=== PATIENT | female | born 1955 | race Caucasian/White ===

== ENCOUNTER 2018-10-08 12:09 | Inpatient (IN) | payer OTHER ==
[~2018-10-08] VITALS: Ht 157.5 cm; Wt 103.9 kg
--- OUTSIDE RECORDS SUMMARY | 2018-10-08 12:11 | XMS REPORT ---
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 Allergies, Adverse Reactions, Alerts Allergy Name Allergy Type Status Severity Reaction(s) Onset Date Inactive Date Treating Clinician Comments aspirin DA Active U 2015-02-23 00:00:00 penicillin G DA Active U 2015-02-23 00:00:00 SULFA DRUGS DA Active U 2015-02-23 00:00:00 TAPE DA Active U 2005-12-02 00:00:00 Medications This patient has no known medications.
[2018-10-08] MEDS ORDERED: SODIUM CHLORIDE 0.9% 1000ML 1,000 ML IV STA (12:16)
[2018-10-08] MEDS ORDERED: ACETAMINOPHEN 1000 MG/100 ML IV NR (12:16)
[2018-10-08] MEDS ORDERED: METHYLPREDNISOLONE SOD SUCC 125 MG/2ML VIAL IV ONE (12:30)
[2018-10-08] MEDS ORDERED: ALBUTEROL/IPRATROPIUM 3 ML NEB NEB ONE (12:30)
[2018-10-08 13:02] LABS: ABG HCO3 30 mmol/L (23-28); ABG PCO2 48 mmHg (41-51); ABG PO2 83 mmHg (80-105)
[2018-10-08 13:04] LABS: BASOPHILS # (AUTO) 0.1 (0.0-0.1); BASOPHILS % 0.6 % (0.0-1.0); EOSINOPHILS # (AUTO) 0.3 (0.0-0.4); EOSINOPHILS % 2.2 % (0.0-6.0); HEMATOCRIT 39.3 % (34.2-44.1); HEMOGLOBIN 12.8 g/dL (12.0-16.0); LYMPHOCYTES % 16.7 % (18.0-39.1); MEAN CORPUSCULAR HEMOGLOBIN 31.1 pg (28-32); MEAN CORPUSCULAR HGB CONC 32.6 g/dL (31-35); MEAN CORPUSCULAR VOLUME 95.4 fL (81-99); MONOCYTES # (AUTO) 0.7 (0.2-0.8); NEUTROPHILS % 73.8 % (38.7-80.0); PLATELET COUNT 282 x10e3/uL (140-360); RED BLOOD COUNT 4.12 x10e6/uL (3.6-5.1)
[2018-10-08 13:14] LABS: BILIRUBIN,URINE NEGATIVE (NEGATIVE); CLARITY,URINE SL CLOUDY (CLEAR); COLOR,URINE YELLOW (YELLOW); KETONES,URINE NEGATIVE (NEGATIVE); LEUKOCYTE ESTERASE ,URINE NEGATIVE (NEGATIVE); NITRITE,URINE NEGATIVE (NEGATIVE); PROTEIN,URINE DIPSTICK TRACE (NEGATIVE); URINE UROBILINOGEN 1 mg/dL (0.2 - 1)
[2018-10-08 13:15] LABS: BACTERIA,URINE RARE /HPF; EPITHELIAL CELLS,URINE FEW /LPF; RBC,URINE 0-5 /HPF (0-5)
--- NOTE | 2018-10-08 13:18 | Diagnostic Imaging Report ---
EXAM: CHEST SINGLE (PORTABLE), AP Portable DATE: 10/08/2018 Time stamp on exam: 12:54 PM INDICATION: Shortness of breath COMPARISON: None FINDINGS: LINES/TUBES: None LUNGS: Mild pulmonary vascular congestion/edema. Opacity in the right upper lobe adjacent to the minor fissure may represent focal consolidation in addition. PLEURA: No effusions or pneumothorax. HEART AND MEDIASTINUM: Heart is enlarged. BONES AND SOFT TISSUES: No acute findings. IMPRESSION: 1. Cardiomegaly with mild pulmonary vascular congestion/edema. 2. Right upper lobe focal consolidation. Signed by: Dr. Shen Anders DO on 10/08/2018 1:14 PM
[2018-10-08 13:26] LABS: ALANINE AMINOTRANSFERASE 24 IU/L (0-55); ALBUMIN 3.1 g/dL (3.5-5.0); ALBUMIN/GLOBULIN RATIO 0.7 (0.8-2.0); ALKALINE PHOSPHATASE 114 IU/L (40-150); ANION GAP 13.8 mmol/L (8-16); BLOOD UREA NITROGEN 5 mg/dL (7-26); BUN/CREATININE RATIO 7 (6-25); CALCIUM 9.4 mg/dL (8.4-10.2); CARBON DIOXIDE 29 mmol/L (22-29); CHLORIDE 100 mmol/L (98-107); CREATINE KINASE 69 IU/L (29-168); EST GLOMERULAR FILTRATION RATE > 60 ML/MIN (60-); GLUCOSE 111 mg/dL (74-118); LIPASE 12 U/L (8-78); POTASSIUM 3.8 mmol/L (3.5-5.1); SODIUM 139 mmol/L (136-145)
[2018-10-08 13:30] LABS: STREPTOCOCCUS GRP A ANTIGEN NEGATIVE (NEGATIVE)
[2018-10-08 13:42] LABS: INFLUENZAE A&B ANTIGEN (RAPID) POSITIVE FLU B (NEGATIVE)
[2018-10-08] MEDS ORDERED: VANCOMYCIN HCL 1GM/NS 250 ML BAG IV SCH (13:45)
[2018-10-08] MEDS ORDERED: CEFTRIAXONE SOD 1 GRAM/0.9% SOD CHL 50ML BAG IV SCH (13:45)
[2018-10-08] MEDS ORDERED: AZITHROMYCIN 500MG/SOD CHL 0.9% 250ML BAG IV SCH (13:45)
[2018-10-08] MEDS ORDERED: CEFTRIAXONE SOD 1 GM/NS 50 ML 50 ML IV SCH ×2 (14:00→15:30)
[2018-10-08] MEDS ORDERED: VANCOMYCIN 1GM/NS 250 ML 250 ML IV SCH (14:00)
[2018-10-08] MEDS ORDERED: AZITHROMYCIN 500MG/NS 250 ML 250 ML IV SCH (14:00)
[2018-10-08 15:00] VITALS: BP 144/66
[2018-10-08] MEDS ORDERED: PROAIR HFA INH8.5 GM IH (15:11)
[2018-10-08 15:12] VITALS: BP 144/66
[2018-10-08 15:13] VITALS: BP 144/66
--- NOTE | 2018-10-08 15:25 | NUR ---
PATIENT ARRIVED ON THE UNIT AT 1418 PER STRETCHER FROM THE ER. PATIENT IS IN STABLE CONDITION WITH NO S/S OF RESPIRATORY DISTRESS. NO PAIN VOICED. O2 APPLIED AT 2LNC. TELEMETRY APPLIED. IV ANTIBIOTICS INFUSING. PRESENT IN ROOM. CALL LIGHT IS WITHIN REACH, PATIENT INSTRUCTED TO CALL FOR ASSISTANCE NEEDED.
[2018-10-08] MEDS ORDERED: ACETAMINOPHEN 325 MG TAB PO PRN (15:45)
[2018-10-08] MEDS ORDERED: ONDANSETRON HCL INJ 2MG/ML 2ML 2 MG/ML VIAL IV PRN (15:45)
[2018-10-08] MEDS: OSELTAMIVIR PHOSPHATE 75 MG CAP PO SCH (16:19)
[2018-10-08] MEDS: CEFTRIAXONE SOD 1 GM/NS 50 ML 50 ML IV SCH (16:19)
[2018-10-08] MEDS: VANCOMYCIN 1GM/NS 250 ML 250 ML IV SCH (16:57)
--- NOTE | 2018-10-08 19:05 | NUR ---
PATIENT IS IN STABLE CONDITION WITH NO S/S OF RESPIRATORY DISTRESS. NO PAIN VOICED. TELEMETRY APPLIED WITH CONTINUOS PULSE OX. IV ANTIBIOTIC INFUSING. PRESENT IN ROOM. CALL LIGHT IS WITHIN REACH, PATIENT INSTRUCTED TO CALL FOR ASSISTANCE NEEDED. BEDSIDE REPORT GIVEN TO ONCOMING NURSE.
[2018-10-08] MEDS: ALBUTEROL/IPRATROPIUM 3 ML NEB NEB SCH (19:10)
[2018-10-08 19:11] VITALS: BP 144/65
--- NOTE | 2018-10-08 19:11 | NUR ---
PT IS RESTING IN BED WITH FAMILY AT BEDSIDE. NO RESPIRATORY DISTRESS NOTED. BED IN THE LOWEST POSITION, LOCKED, AND CALL LIGHT WITHIN REACH. WILL CONTINUE TO MONITOR.
[2018-10-08 19:53] VITALS: BP 144/65
[2018-10-08 21:19] LABS: CREATINE KINASE 79 IU/L (29-168)
--- NOTE | 2018-10-08 22:47 | Consultation ---
DATE OF CONSULTATION: 10/08/2018 Pulmonary Consultation REASON FOR CONSULTATION: Shortness of breath, wheezing, and coughing. HISTORY OF PRESENT ILLNESS: Ms. Gilman is a 63-year-old female. She presented to the emergency room with cough, fever, and shortness of breath. The patient reports the symptoms have been going on for a week, progressively getting worse. She has been a smoker for 40+ years. She quit a week ago. She smokes a pack a day. She has been on ProAir inhaler at home. She denies any nausea, vomiting, or diarrhea. In the emergency room, the patient underwent testing and was positive for influenza B. Influenza B chest x-ray showing evidence of pneumonia as well. She is denying any pneumonia as well. REVIEW OF SYSTEMS: GENERAL: Having fever and chills. HEAD: Denies any head trauma. ENT: Denies any earache. CVS: Denies any chest pain. RESPIRATORY: Shortness of breath. The rest of the review of systems are negative except as in HPI. PAST MEDICAL HISTORY: Hypertension and obesity. PAST SURGICAL HISTORY: None known. FAMILY AND SOCIAL HISTORY: She does not smoke. She has been a smoker for 40 years, one pack per day. She denies any alcohol use. PHYSICAL EXAMINATION: VITAL SIGNS: Temperature 99.1, pulse of 82, blood pressure 144/62, respiratory rate of 18, and O2 saturation 93% on 2 L. HEENT: Head is atraumatic and normocephalic. NECK: Supple. CHEST: Reduced air entry. Occasional wheezing. HEART: S1, S2 audible. ABDOMEN: Soft, nontender, and nondistended. EXTREMITIES: No clubbing, cyanosis, or edema. NEUROLOGIC: Awake and alert. LABORATORY DATA: White count of 12,000, hemoglobin 12.8, and platelets 282. Chemistries within normal limits. Chest x-ray, I have reviewed the images, it is showing evidence of right upper lobe consolidation and also pulmonary vascular congestion, edema. ASSESSMENT: Ms. Gilman is a 63-year-old female presented with shortness of breath, cough, and chills. 1. Influenza. 2. Early community-acquired pneumonia. 3. Smoker. 4. Possibility of chronic obstructive pulmonary disease exacerbation. 5. Obesity. PLAN: 1. IV Solu-Medrol. 2. Nebulizer treatment. 3. Tamiflu and IV antibiotics. Thank you for this consult. MD ARABELLA Alvarez/MERCEDES /[id number]
[2018-10-08] MEDS ORDERED: ZETIA10 MG PO (23:16)
[2018-10-08] MEDS ORDERED: NORCO 10-325 T1 EACH (23:16)
[2018-10-08] MEDS ORDERED: VENLAFAXINE HCL75 M1 PO (23:16)
[2018-10-08] MEDS ORDERED: SIMVASTATIN40 MG PO (23:16)
[2018-10-08] MEDS ORDERED: TRAZODONE HCL50 MG PO (23:16)
[2018-10-08] MEDS ORDERED: GABAPENTIN100 MG (23:16)
[2018-10-09] VITALS (10 sets, daily range): BP systolic 112–144; BP diastolic 56–65
[2018-10-09 05:18] LABS: BASOPHILS % 0.3 % (0.0-1.0); HEMATOCRIT 40.4 % (34.2-44.1); HEMOGLOBIN 12.7 g/dL (12.0-16.0); LYMPHOCYTES # (AUTO) 1.3 (1.0-3.2); LYMPHOCYTES % 11.5 % (18.0-39.1); MEAN CORPUSCULAR HGB CONC 31.4 g/dL (31-35); MEAN CORPUSCULAR VOLUME 98.5 fL (81-99); MONOCYTES # (AUTO) 0.4 (0.2-0.8); MONOCYTES % 3.1 % (4.4-11.3); NEUTROPHILS # (AUTO) 9.8 (2.1-6.9); NEUTROPHILS % 84.2 % (38.7-80.0); PLATELET COUNT 300 x10e3/uL (140-360)
[2018-10-09 06:12] LABS: CREATINE KINASE 91 IU/L (29-168)
--- NOTE | 2018-10-09 07:00 | NUR ---
PATIENT IS IN STABLE CONDITION WITH NO S/S OF RESPIRATORY DISTRESS. PATIENT DENIES PAIN. 02 APPLIED. TELEMETRY APPLIED WITH CONTINUOUS PULSE OX. CALL LIGHT IS WITHIN REACH, PATIENT INSTRUCTED TO CALL FOR ASSISTANCE NEEDED.
[2018-10-09] MEDS: ALBUTEROL/IPRATROPIUM 3 ML NEB NEB SCH ×4 (07:40→19:35)
[2018-10-09] MEDS: OSELTAMIVIR PHOSPHATE 75 MG CAP PO SCH (08:32)
[2018-10-09] MEDS ORDERED: FAMOTIDINE20 MG PO (08:48)
[2018-10-09] MEDS ORDERED: ALBUTEROL SULFATE HFA 8GM INHALATION AEROSOL INH PRN (13:15)
--- NOTE | 2018-10-09 13:17 | NUR ---
ASKED DR. VELAZQUEZ ON RENEWING HOME MEDICATIONS- ORDER TO RENEW ALL HOME MEDICATIONS EXCLUDING NORCO.
--- NOTE | 2018-10-09 13:33 | History and Physical ---
CHIEF COMPLAINT: Cough, chest congestion. HISTORY OF PRESENT ILLNESS: This is a 63-year-old white woman, who presents to [facility] Emergency Room with a 2 to 3 day history of worsening cough and chest congestion. The patient states that her sputum has been purulent in nature. Denies any hemoptysis. The patient also states her sputum has not been davidson or black. The patient states that past 5 days prior to admission, she was experiencing copious amount of sinus drainage. The patient also states she quit smoking tobacco on October 03, 2018, after her 2nd round of oral Chantix. The patient states she was experiencing fever for at least 2 to 3 days prior to admission. In the emergency room, the patient was found to have white blood cell count of 12,100 with 73% segmented neutrophils. The patient had a chest x-ray done in the emergency room, which revealed cardiomegaly with mild pulmonary vascular congestion as well as right upper lobe focal consolidation. The patient was admitted for further evaluation and treatment. The patient also underwent serial cardiac enzymes in the emergency room that did not reveal any evidence of acute myocardial ischemia or infarction. In fact, the patient states in 2016, she underwent nuclear stress test, which was completely normal. REVIEW OF SYSTEMS: GENERAL: Weight has been stable. No fever or chills. HEENT: No headaches. No vision changes. CARDIOVASCULAR/RESPIRATORY: The patient states she has a chronic cough from COPD, but she did quit smoking on October 03, 2018. Denies any chest pain or tightness. The patient does complain of pleuritic pain in her upper right anterior chest. GI: No nausea, vomiting, or constipation. : No UTI or overactive bladder symptoms. NEUROMUSCULAR: Denies any limb weakness, but she has numbness in her legs from lumbar radiculitis. The patient has chronic lower back pain. PAST MEDICAL HISTORY: 1. Extreme obesity. 2. COPD. 3. Tobacco abuse (quit October 03, 2018). 4. Hypertensive heart disease. 5. Hyperlipidemia. 6. Depression. ALLERGIES: 1. PENICILLIN. 2. SULFA ANTIBIOTICS. 3. ASPIRIN. 4. TAPE. FAMILY HISTORY: Mother had congestive heart failure, hypertension, and coronary artery disease. She also had multiple family members with hyperlipidemia. PAST SURGICAL HISTORY: 1. Lumbar spine surgery 5 times. 2. Left clavicular surgery. 3. Tonsillectomy. SOCIAL HISTORY: This woman lives with family. She is unemployed. The patient states she is disabled from her multiple back surgeries. She is a heavy tobacco smoker, but quit on October 03, 2018. Denies any alcohol use. MEDICATIONS: 1. Albuterol inhaler 2 puffs q.i.d. 2. Zetia 10 mg at bedtime. 3. Famotidine 40 mg daily. 4. Gabapentin 100 mg daily. 5. Sayre 10/325, 1 daily p.r.n. pain. 6. Simvastatin 40 mg at bedtime. 7. Trazodone 100 mg at bedtime. 8. Venlafaxine 75 mg daily. PHYSICAL EXAMINATION: GENERAL: She is awake, alert, fluent. She is very pleasant and cooperative. VITAL SIGNS: Height 5 feet 2 inches, weighs 229 pounds, and BMI 41. Blood pressure is 120/60, pulse is 84, respiratory rate is 22, oxygen saturation 95% on 2 L oxygen via nasal cannula, and temperature 97.6. INTEGUMENT: Skin is warm and dry. No pallor, jaundice, or diaphoresis. HEENT: Anicteric sclerae. Moist mucous membranes. NECK: Supple. CARDIOVASCULAR: Distant heart sounds. Regular rate and rhythm. LUNGS: Coarse bronchial breath sounds bilaterally. ABDOMEN: Obese, but benign. EXTREMITIES: No joint deformities. Intact. DIAGNOSES: 1. Right upper lobe pneumonia, likely gram-negative geovanny. 2. Chronic obstructive pulmonary disease. 3. Tobacco abuse (quit October 03, 2018). 4. Extreme obesity, BMI 41. 5. Hypertensive heart disease. 6. Chronic diastolic congestive heart failure, likely. PLAN: 1. Follow blood cultures. 2. Intravenous antibiotics. 3. Discontinue intravenous fluids. 4. Discontinue telemetry. 5. We will check a B-type natriuretic peptide level to assess for intravascular volume overload. 6. Repeat chest x-ray tomorrow morning. 7. I did commend patient for her willingness to quit smoking tobacco. Spent 45 minutes in care of this patient. MD PAPA Kaur/MERCEDES /[id number] MTDJose
[2018-10-09] MEDS: AZITHROMYCIN 250MG/NS 100 ML 100 ML IV SCH (14:25)
[2018-10-09] MEDS: CEFTRIAXONE SOD 1 GM/NS 50 ML 50 ML IV SCH (15:28)
[2018-10-09] MEDS: GABAPENTIN 100 MG CAP PO SCH ×2 (17:00→17:07)
[2018-10-09] MEDS: VANCOMYCIN 1GM/NS 250 ML 250 ML IV SCH (17:07)
--- NOTE | 2018-10-09 19:07 | NUR ---
PATIENT IS RESTING IN BED- IN STABLE CONDITION WITH NO S/S OF RESPIRATORY DISTRESS. NO PAIN VOICED. IV ANTIBIOTIC INFUSING. 02 APPLIED. CALL LIGHT IS WITHIN REACH, PATIENT INSTRUCTED TO CALL FOR ASSISTANCE NEEDED. BEDSIDE REPORT GIVEN TO ONCOMING NURSE.
--- NOTE | 2018-10-09 19:20 | NUR ---
Bedside report and walking rounds complete. Pt resting in bed and in no apparent distress.Pt on droplet precautions for +Flu B. Pt on O2 and no tele. All safety measures ensured and Pt call chapin near. Pt encouraged to use call chapin for assistance.
[2018-10-09] MEDS: EZETIMIBE 10 MG TAB PO SCH (21:41)
[2018-10-09] MEDS: TRAZODONE HCL 50 MG TAB PO SCH (21:41)
[2018-10-09] MEDS: SIMVASTATIN 40 MG TAB PO SCH (21:41)
--- NOTE | 2018-10-09 22:55 | Consultation ---
DATE OF CONSULTATION: 10/09/2018 REASON FOR CONSULTATION: Pneumonia. HISTORY OF PRESENT ILLNESS: Ms. Gilman is a very pleasant 63-year-old white female with history of obesity, history of COPD, history of heavy smoking and portion control recently and for the last couple of weeks, she is trying Chantix to quit. The patient comes in with fever, chills, cough. She has a productive yellowish-brown sputum, not feeling well for 4 days, getting more short of breath than usual. The patient also has history of obesity, COPD, tobacco abuse, hypertensive heart disease, hyperlipidemia, depression, chronic back pain. She had 5 surgeries on her back before. She is disabled because of it. Comes in with the above complaint of cough, fever, chills, not feeling well. The patient came to the emergency room where she is being admitted. Her influenza A and B came back positive. Her cultures are still pending. Her laboratory data reviewed. PAST MEDICAL HISTORY: As mentioned above. PAST SURGICAL HISTORY: Back surgery. ALLERGIES: PENICILLIN, BUT SHE DOES WELL WITH KEFLEX. SHE IS ALLERGIC TO SULFA. LABORATORY DATA: Influenza was positive. Sodium 139, potassium 3.8, creatinine 0.7. White count 11.6, hemoglobin of 12. Blood gas, pH 7.40, pCO2 of 48, pO2 of 83, FiO2. IMAGING DATA: She had a chest x-ray, which showed cardiomegaly and right upper lobe consolidation. REVIEW OF SYSTEMS: GENERAL: She is just not feeling well. HEENT: There are visual changes or hearing changes. GI: There is no nausea. No vomiting. No diarrhea. CARDIAC: There is no arrhythmia. NEURO: No seizure activity. SKIN: There are no other rashes. Her review of systems is otherwise unremarkable. MEDICATION LIST: She is on azithromycin, Rocephin, and vancomycin. She is also on albuterol. PHYSICAL EXAMINATION: GENERAL: She is currently alert, oriented, does not seem to be in acute distress. VITAL SIGNS: Stable, currently afebrile. HEENT: Normocephalic. Not icteric. NECK: Supple. CHEST: Few rhonchi on the right. COR: S1 and S2. No S3, S4, or murmur. ABDOMEN: Soft. Bowel sounds present. No tenderness. EXTREMITIES: No edema. IMPRESSION: 1. Pneumonia. 2. Influenza with complicated bacterial pneumonia in a patient with chronic obstructive pulmonary disease, history of smoking until recently. 3. History of chronic back pain. PLAN: I agree with vancomycin, Rocephin, and 8 days of antibiotic. I agree with Tamiflu, recommend 7 days. Influenza vaccine, flu vaccine, pneumococcal vaccine when she is better. COPD treatment and Pulmonary is following. I encouraged the patient to continue with the smoking cessation. Obesity, discussed diet. We will follow. MD RON Mitchell/MODL /[id number]
[2018-10-10] VITALS (7 sets, daily range): BP systolic 104–137; BP diastolic 52–66
[2018-10-10] MEDS: ALBUTEROL/IPRATROPIUM 3 ML NEB NEB SCH ×4 (01:55→19:45)
[2018-10-10 05:57] LABS: BASOPHILS # (AUTO) 0.1 (0.0-0.1); BASOPHILS % 0.5 % (0.0-1.0); EOSINOPHILS # (AUTO) 0.2 (0.0-0.4); EOSINOPHILS % 1.5 % (0.0-6.0); HEMATOCRIT 39.9 % (34.2-44.1); HEMOGLOBIN 12.3 g/dL (12.0-16.0); LYMPHOCYTES # (AUTO) 3.4 (1.0-3.2); LYMPHOCYTES % 29.9 % (18.0-39.1); MEAN CORPUSCULAR HEMOGLOBIN 30.8 pg (28-32); MEAN CORPUSCULAR HGB CONC 30.8 g/dL (31-35); MEAN CORPUSCULAR VOLUME 99.8 fL (81-99); MONOCYTES # (AUTO) 0.7 (0.2-0.8); NEUTROPHILS # (AUTO) 6.9 (2.1-6.9); NEUTROPHILS % 61.4 % (38.7-80.0); PLATELET COUNT 301 x10e3/uL (140-360); RED CELL DISTRIBUTION WIDTH 13.3 % (11.7-14.4)
[2018-10-10 06:20] LABS: ALANINE AMINOTRANSFERASE 33 IU/L (0-55); ALKALINE PHOSPHATASE 97 IU/L (40-150); ANION GAP 10.9 mmol/L (8-16); CALCIUM 9.2 mg/dL (8.4-10.2); CARBON DIOXIDE 31 mmol/L (22-29); CHLORIDE 104 mmol/L (98-107); CREATININE, SERUM 0.73 mg/dL (0.57-1.11); EST GLOMERULAR FILTRATION RATE > 60 ML/MIN (60-); GLUCOSE 119 mg/dL (74-118); POTASSIUM 3.9 mmol/L (3.5-5.1); SODIUM 142 mmol/L (136-145)
--- NOTE | 2018-10-10 06:34 | Diagnostic Imaging Report ---
Examination: Single AP view of the chest. COMPARISON: Portable chest 10/08/2018 INDICATION: Right upper lobe pneumonia IMPRESSION: 1. Lines and Tubes: None 2. Lungs are well-inflated. No interval change in focal airspace opacity in the lateral right upper lobe against the minor fissure. Interval worsening of central pulmonary venous congestion and development of bilateral perihilar interstitial opacities consistent with edema. No definite effusion. 3. Prominence of the cardiac silhouette, which may be accentuated by AP projection. 4. No acute bony abnormalities. Signed by: Dr. Luis Cherry M.D. on 10/10/2018 6:30 AM
[2018-10-10 06:39] LABS: ALBUMIN 2.7 g/dL (3.5-5.0); ALBUMIN/GLOBULIN RATIO 0.6 (0.8-2.0); BLOOD UREA NITROGEN 16 mg/dL (7-26)
[2018-10-10 06:42] LABS: BUN/CREATININE RATIO 22 (6-25)
--- NOTE | 2018-10-10 06:59 | NUR ---
Bedside report and walking rounds complete. Pt resting in bed and in no apparent distress. All safety measured ensured.
--- NOTE | 2018-10-10 07:00 | NUR ---
PATIENT IS AWAKE AND IN STABLE CONDITION WITH NO S/S OF RESPIRATORY DISTRESS. PATIENT C/O HEADACHE. 02 APPLIED. CALL LIGHT IS WITHIN REACH, PATIENT INSTRUCTED TO CALL FOR ASSISTANCE NEEDED.
[2018-10-10] MEDS: FAMOTIDINE 20 MG TAB PO SCH (08:00)
[2018-10-10] MEDS: OSELTAMIVIR PHOSPHATE 75 MG CAP PO SCH (08:00)
[2018-10-10] MEDS: GABAPENTIN 100 MG CAP PO SCH ×2 (08:06→17:00)
[2018-10-10] MEDS ORDERED: VENLAFAXINE HCL 75 MG CAPCR PO SCH (09:00)
--- NOTE | 2018-10-10 09:42 | NUR ---
SHOWER OFFERED TO PATIENT TWICE- PATIENT REFUSED AND SAID MAYBE LATER THIS EVENING.
[2018-10-10] MEDS ORDERED: FUROSEMIDE INJ 10 MG/ML 2 ML VIAL IV NR (12:15)
[2018-10-10] MEDS ORDERED: FUROSEMIDE INJ 10 MG/ML 4 ML VIAL IV NR (12:30)
[2018-10-10] MEDS: AZITHROMYCIN 250MG/NS 100 ML 100 ML IV SCH (13:05)
[2018-10-10] MEDS: CEFTRIAXONE SOD 1 GM/NS 50 ML 50 ML IV SCH (16:15)
[2018-10-10] MEDS: VANCOMYCIN 1GM/NS 250 ML 250 ML IV SCH (17:11)
--- NOTE | 2018-10-10 19:02 | NUR ---
PATIENT IS IN STABLE CONDITION WITH NO S/S OF RESPIRATORY DISTRESS. NO PAIN VOICED. 02 APPLIED. IV ANTIBIOTIC INFUSING. FAMILY MEMBER PRESENT NEAR BEDSIDE. CALL LIGHT IS WITHIN REACH, PATIENT INSTRUCTED TO CALL FOR ASSISTANCE NEEDED. REPORT GIVEN TO ONCOMING NURSE.
--- NOTE | 2018-10-10 19:10 | NUR ---
Beside report received and walking rounds complete. Pt resting in bed and in no apparent distress. Pt on O2. All safety measures ensured and pt call chapin near. Pt encouraged to use call chapin for assistance.
[2018-10-10] MEDS: EZETIMIBE 10 MG TAB PO SCH (21:20)
[2018-10-10] MEDS: TRAZODONE HCL 50 MG TAB PO SCH (21:20)
[2018-10-10] MEDS: SIMVASTATIN 40 MG TAB PO SCH (21:20)
[2018-10-11] VITALS (8 sets, daily range): BP systolic 92–154; BP diastolic 43–77
[2018-10-11] MEDS: ALBUTEROL/IPRATROPIUM 3 ML NEB NEB SCH ×4 (02:30→19:50)
--- NOTE | 2018-10-11 02:35 | Consultation ---
DATE OF CONSULTATION: 10/10/2018 HISTORY OF PRESENT ILLNESS: This is a 63-year-old patient, who was kindly referred for cardiac evaluation. The patient has been complaining of shortness of breath and a chest x-ray shows pulmonary venous congestion and cardiomegaly compatible with congestive heart failure. The patient however presented with cough and fever and chest tightness for about 1 week. She also had purulent sputum and was found to have right upper lobe pneumonia and tested positive for influenza. The patient stated that she has not taken flu vaccinations because she apparently always developed symptoms of flu after she became vaccinated. The patient however has been a heavy smoker for over 4 years 1 pack per day until just recently. PAST MEDICAL HISTORY: Patient's past history reveals that she had multiple back surgeries and chronic low back pain. She has hyperlipidemia, but the patient denies any cardiac history. She denies any hypertension and not taken any antihypertensive medications. The patient also had a nuclear stress test about one year ago, which was normal. The patient has had previously tonsillectomy and surgery on her left clavicle. FAMILY HISTORY: Positive for coronary artery disease, hyperlipidemia, hypertension, congestive heart failure on her mother side. REVIEW OF SYSTEMS: The remainder of systems reviewed. The patient denies any headache or sore throat. The patient is complaining of productive sputum with cough and shortness of breath. She also has chest tightness. The patient denies any abdominal pain, nausea, or vomiting. She denies any leg swelling or leg pain. PHYSICAL EXAMINATION: VITAL SIGNS: Reveals blood pressure 118/60, temperature 97.7. NECK: Carotid pulses are present. CHEST: Reveals decreased breath sounds and rhonchi. CARDIOVASCULAR SYSTEM: Normal apical impulse. The rhythm is regular. First and second heart sounds are normal. There is no S3. There is no rub. ABDOMEN: Soft. There is no tenderness or organomegaly. EXTREMITIES: Pulses are diminished. Both feet are warm. There is no peripheral edema. NEUROLOGIC: Does not reveal any motor defect. LABORATORY DATA: Showed elevated white cell count. Renal function and liver tests were normal. Also BMP is normal is normal, as are the patient's cardiac enzymes. Electrocardiogram also does not show any myocardial injury. IMPRESSION: 1. Pneumonia. 2. Positive testing for influenza. 3. Suspect diastolic congestive heart failure. 4. Hyperlipidemia. 5. Chronic obstructive pulmonary disease. 6. Obesity. Agree with the administration of Lasix and we will review the echocardiogram and chest x-ray ordered, but not done yet and I will follow with you. MD ANDREINA Cho/MODL /[id number]
[2018-10-11 06:13] LABS: BASOPHILS # (AUTO) 0.1 (0.0-0.1); BASOPHILS % 0.6 % (0.0-1.0); EOSINOPHILS # (AUTO) 0.4 (0.0-0.4); EOSINOPHILS % 3.8 % (0.0-6.0); HEMATOCRIT 38.1 % (34.2-44.1); HEMOGLOBIN 11.8 g/dL (12.0-16.0); LYMPHOCYTES # (AUTO) 2.8 (1.0-3.2); LYMPHOCYTES % 29.1 % (18.0-39.1); MEAN CORPUSCULAR HEMOGLOBIN 30.5 pg (28-32); MEAN CORPUSCULAR VOLUME 98.4 fL (81-99); MONOCYTES # (AUTO) 0.6 (0.2-0.8); MONOCYTES % 6.3 % (4.4-11.3); NEUTROPHILS # (AUTO) 5.7 (2.1-6.9); NEUTROPHILS % 59.7 % (38.7-80.0); PLATELET COUNT 304 x10e3/uL (140-360); RED BLOOD COUNT 3.87 x10e6/uL (3.6-5.1); RED CELL DISTRIBUTION WIDTH 13.4 % (11.7-14.4)
[2018-10-11 06:28] LABS: ALANINE AMINOTRANSFERASE 35 IU/L (0-55); ALBUMIN 2.9 g/dL (3.5-5.0); ALBUMIN/GLOBULIN RATIO 0.7 (0.8-2.0); ALKALINE PHOSPHATASE 93 IU/L (40-150); ANION GAP 12.3 mmol/L (8-16); BLOOD UREA NITROGEN 14 mg/dL (7-26); BUN/CREATININE RATIO 20 (6-25); CALCIUM 9.1 mg/dL (8.4-10.2); CARBON DIOXIDE 33 mmol/L (22-29); CHLORIDE 99 mmol/L (98-107); CREATININE, SERUM 0.71 mg/dL (0.57-1.11); EST GLOMERULAR FILTRATION RATE > 60 ML/MIN (60-); GLUCOSE 113 mg/dL (74-118); POTASSIUM 3.3 mmol/L (3.5-5.1); SODIUM 141 mmol/L (136-145)
--- NOTE | 2018-10-11 07:20 | NUR ---
Beside report and walking rounds complete.
--- NOTE | 2018-10-11 08:10 | NUR ---
patient up in bed, AAOx3, Denies any pain, no distress noted,on O2, call light in reach
[2018-10-11] MEDS: FAMOTIDINE 20 MG TAB PO SCH (08:16)
[2018-10-11] MEDS: OSELTAMIVIR PHOSPHATE 75 MG CAP PO SCH (08:16)
[2018-10-11] MEDS: GABAPENTIN 100 MG CAP PO SCH ×2 (09:00→17:00)
[2018-10-11] MEDS ORDERED: POTASSIUM CHLORIDE 20 MEQ TAB CR PO NR (10:30)
--- NOTE | 2018-10-11 12:22 | Progress Note ---
DATE: 10/11/2018 SUBJECTIVE: Ms. Gilman is a 63-year-old female with history of COPD, tobacco use, hypertension, who 2-3 days prior to admission started with cough and chest congestion. She went to see a doctor and she was sent to the emergency room because her oxygen was low. Chest x-ray revealed some cardiomegaly and pulmonary vascular congestion as well as right upper lobe consolidation. The patient was admitted to the hospital. She has been seen by Infectious Disease and also by Cardiology. PHYSICAL EXAMINATION: GENERAL: Today, she is awake and alert. She is feeling better. VITAL SIGNS: Temperature is 98 and blood pressure 137/60. HEART: Regular rate. LUNGS: Clear to auscultation. ABDOMEN: Soft. LABORATORY DATA: Influenza B was positive. White count now is 9.54, hemoglobin 11.8, and hematocrit 38.1. Potassium is 3.3, creatinine is 0.71, and glucose is 113. Blood culture had been negative. Throat culture, there is respiratory raji there. Chest x-ray done yesterday show lungs are well inflated. There is a focal airspace opacity in the right upper lobe against the minor fissure, intervally worsening of the central pulmonary venous congestion. ASSESSMENT: 1. Right upper lobe pneumonia. 2. Chronic obstructive pulmonary disease exacerbation. 3. Tobacco abuse. 4. Morbid obesity. 5. Chronic diastolic congestive heart failure. 6. Hypertensive heart disease. 7. Influenza B positive. PLAN: The plan at the present time is to continue IV antibiotics. Continue to monitor x-ray. Continue other home medications. The patient was strongly advised to stop smoking. Continue neb treatments, IV Solu-Medrol, and Tamiflu. All this was discussed with the patient. All questions were answered to satisfaction. I spent more than 30 minutes examining the patient, reviewing overnight events, lab work, chest x-ray and discussing plan of care with the patient. MD HAMLET Emmanuel/MERCEDES /[id number]
[2018-10-11] MEDS: LISINOPRIL 2.5 MG TAB PO SCH (14:00)
[2018-10-11] MEDS: VANCOMYCIN 1GM/NS 250 ML 250 ML IV SCH (16:20)
[2018-10-11] MEDS: CEFTRIAXONE SOD 1 GM/NS 50 ML 50 ML IV SCH (17:01)
--- NOTE | 2018-10-11 18:28 | NUR ---
Patient up in bed, talking in phone, denies any SOB or pain, not in any distress, call light in reach
--- NOTE | 2018-10-11 19:00 | NUR ---
Completed bedside rounds with morning nurse. Pt alert and orient to name, place, time, and situation. Denies pain at this time. O2 @2L via NC. Call chapin within reach. Will continue to monitor.
[2018-10-11] MEDS: SIMVASTATIN 40 MG TAB PO SCH (21:30)
[2018-10-11] MEDS: TRAZODONE HCL 50 MG TAB PO SCH (21:30)
[2018-10-11] MEDS: EZETIMIBE 10 MG TAB PO SCH (21:30)
[2018-10-11] MEDS: VENLAFAXINE HCL 75 MG CAPCR PO SCH (21:30)
[2018-10-12] VITALS (9 sets, daily range): BP systolic 90–145; BP diastolic 51–71
[2018-10-12] MEDS: ALBUTEROL/IPRATROPIUM 3 ML NEB NEB SCH ×4 (01:05→19:40)
--- NOTE | 2018-10-12 06:35 | NUR ---
Pt alert and orient. Lying in bed HOB 60 degrees. Denies pain. No distress noted.
[2018-10-12] MEDS ORDERED: FUROSEMIDE 40 MG TAB PO SCH (09:00)
[2018-10-12] MEDS: GABAPENTIN 100 MG CAP PO SCH ×2 (09:00→17:00)
[2018-10-12] MEDS: LISINOPRIL 2.5 MG TAB PO SCH (09:00)
[2018-10-12] MEDS: OSELTAMIVIR PHOSPHATE 75 MG CAP PO SCH (09:36)
[2018-10-12] MEDS: FAMOTIDINE 20 MG TAB PO SCH (09:36)
--- NOTE | 2018-10-12 11:33 | Progress Note ---
DATE: 10/12/2018 SUBJECTIVE: Ms. Gilman is a 63-year-old female with history of COPD, hypertension, tobacco abuse, came to the emergency room complaining of 2 to 3 days of cough, and chest congestion. She was found to be hypoxemic. Chest x-ray shows some cardiomegaly, pulmonary congestion and right upper lobe consolidation. She was admitted to the hospital, started on IV antibiotics. She is going to go for a chest CT today. PHYSICAL EXAMINATION: GENERAL: Today, she is awake and alert. She is feeling better. VITAL SIGNS: Temperature is 98.4, blood pressure is 114/55. HEART: Regular rate. LUNGS: Clear to auscultation. ABDOMEN: Soft. LABORATORY DATA: On the blood work; white count is 9.54, hemoglobin is 11.8, hematocrit 38.1. Potassium 3.3, creatinine 0.71. Influenza B came back positive. Blood cultures so far have been negative. Sputum culture shows usual respiratory raji present, some rare gram-negative bacilli. ASSESSMENT: On this patient is, 1. Right upper lobe pneumonia. 2. Chronic obstructive pulmonary disease exacerbation. 3. Morbid obesity. 4. Tobacco abuse. 5. Chronic diastolic congestive heart failure. 6. Hypertensive heart disease. 7. Influenza B positive. PLAN: The plan at the present time is to continue neb treatments, IV Solu-Medrol and five day courses of Tamiflu. Continue IV antibiotics. The patient is going to go for CT scan of the chest today. All this was discussed with the patient. All questions were answered to satisfaction. I spent more than 35 minute examining the patient, reviewing overnight event, lab results and discussing plan of care. MD HAMLET Emmanuel/MERCEDES /[id number]
--- NOTE | 2018-10-12 12:12 | Diagnostic Imaging Report ---
CT of the chest, without contrast, 10/12/2018. History: Cough. Comparison: Chest x-ray 10/10/2018 and 10/08/2018. Technique: Multidetector CT scanning of the chest was performed from the level of the apices to the upper abdomen without contrast. Coronal and sagittal multiplanar reformations were obtained. RADIATION DOSE: Dose modulation, iterative reconstruction, and/or weight based adjustment of the mA/kV was utilized to reduce the radiation dose to as low as reasonably achievable. Discussion: Evaluation is limited without IV contrast. Chest: The heart and main pulmonary artery are mildly enlarged. The aorta is normal in size. There is no evidence of adenopathy. Patchy pulmonary opacities are present along the inferior aspect of the right upper lobe and lingula. Subsegmental atelectasis is both lower lobes. There is no evidence of pleural effusion. Limited evaluation of the upper abdomen shows normal adrenal glands. Bones and soft tissues: No acute abnormality. IMPRESSION: Improvement in bilateral upper lobe pneumonia. Bibasilar subsegmental atelectasis is also present. Signed by: Lee Bennett on 10/12/2018 12:09 PM
[2018-10-12] MEDS: CEFTRIAXONE SOD 1 GM/NS 50 ML 50 ML IV SCH (16:05)
[2018-10-12] MEDS: VANCOMYCIN 1GM/NS 250 ML 250 ML IV SCH (17:15)
--- NOTE | 2018-10-12 19:00 | NUR ---
BEDSIDE SHIFT REPORT PERFORMED, RECEIVED PT LAYING SEMI FOWLERS IN BED, AAOX3, RR EVEN AND NON-LABORED, ON RA. MANRIQUE TO GRAVITY. LEFT PT LAYING SEMI FOWLERS IN BED, BED IN LOW LOCKED POSITION, SIDE RAILS UPX2, CALL LIGHT AND PHONE WITHIN REACH. FAMILY AT BEDSIDE.
[2018-10-12] MEDS: EZETIMIBE 10 MG TAB PO SCH (21:14)
[2018-10-12] MEDS: TRAZODONE HCL 50 MG TAB PO SCH (21:14)
[2018-10-12] MEDS: SIMVASTATIN 40 MG TAB PO SCH (21:14)
[2018-10-12] MEDS: VENLAFAXINE HCL 75 MG CAPCR PO SCH (21:14)
[2018-10-13] VITALS: BP 99/51
[2018-10-13] MEDS: ALBUTEROL/IPRATROPIUM 3 ML NEB NEB SCH ×2 (00:40→06:30)
[2018-10-13 04:00] VITALS: BP 81/51
[2018-10-13 05:20] VITALS: BP 108/68
--- NOTE | 2018-10-13 07:02 | NUR ---
RECEIVED PATIENT RESTING IN BED. NO ACUTE DISTRESS NOTED. DENIES PAIN OR DISCOMFORT. CALL LIGHT WITHIN REACH. BED IN THE LOWEST POSITION.
[2018-10-13 07:15] VITALS: BP 99/53
[2018-10-13 07:20] VITALS: BP 99/53
[2018-10-13] MEDS: GABAPENTIN 100 MG CAP PO SCH (08:02)
[2018-10-13] MEDS: OSELTAMIVIR PHOSPHATE 75 MG CAP PO SCH (08:36)
[2018-10-13] MEDS: FAMOTIDINE 20 MG TAB PO SCH (08:36)
[2018-10-13] MEDS ORDERED: ONDANSETRON HCL 4 MG ORAL DISINTEGRATING TAB PO PRN (10:15)
[2018-10-13 10:58] VITALS: BP 120/57
--- NOTE | 2018-10-13 11:23 | Discharge Summary ---
HOSPITAL COURSE: Ms. Gilman is a 63-year-old female with history of COPD, hypertension, tobacco abuse, came to the emergency room complaining of 2 to 3 weeks of cough, chest congestion and she was hypoxemic. She was admitted. Chest x-ray showed right upper lobe consolidation and pulmonary congestion. She was started on IV Lasix, IV antibiotics. At the present time, she is doing better. CT scan of the chest showed bilateral upper lobe pneumonia. PHYSICAL EXAMINATION: GENERAL: Today, she is awake and alert. VITAL SIGNS: Temperature is 97.2, blood pressure 99/53. HEART: Regular rate. LUNGS: Clear to auscultation. ABDOMEN: Soft. LABORATORY DATA: On the blood work, potassium is 3.3, creatinine is 0.71, glucose 113. White count 9.54, hemoglobin 11.8, and hematocrit 38.1. Chest CT showed bilateral upper lobe pneumonia. She was seen by Cardiology. Echocardiogram shows an ejection fraction of 55 to 60% with LVH, trace MR. DISCHARGE DIAGNOSES: 1. Bilateral upper lobe pneumonia. 2. Chronic obstructive pulmonary disease exacerbation. 3. Morbid obesity. 4. Tobacco abuse. 5. Chronic diastolic congestive heart failure. 6. Hypertension. 7. Influenza B positive. PLAN: The patient already finished her Tamiflu. We are going to talk with Dr. Lebron if we can switch her to p.o. antibiotics. She may go home today and follow up as an outpatient with me and Dr. Melendez. All this was discussed with the patient. All questions were answered to satisfaction. Please see home medication reconciliation list. MD HAMLET Emmanuel/MERCEDES /[id number]
[2018-10-13] MEDS ORDERED: LEVAQUIN500 MG PO (13:37)
--- NOTE | 2018-10-13 14:02 | NUR ---
RECEIVED DC ORDER FROM MD, PATIENT IS IN STABLE CONDITION. DENIES PAIN OR DISCOMFORT. IV LINE TO RIGHT AC DCD WITH TIP INTACT, PRESSURE APPLIED TO SITE, NO BLEEDING NOTED. DISCHARGE TEACHING PROVIDED TO PATIENT, SHE VERBALIZED UNDERSTANDING. DISCHARGE FOLDER AND PERSONAL ITEMS ON HAND. PATIENT ACCOMPANIED TO PRIVATE AUTO VIA WHEELCHAIR BY STAFF.
== END 2018-10-13 14:13 | disposition home or self-care (01) | DRG 193 ==
LOC: ER 12:09 → ERHOLD 14:07 → MED/SURG3 14:30
PROVIDERS: ADMIT Internal Medicine; ATTEND Internal Medicine
DX: J09.X1 Influenza due to identified novel influenza A virus with pneumonia (principal); I50.33 Acute on chronic diastolic (congestive) heart failure; J44.1 Chronic obstructive pulmonary disease with (acute) exacerbation; Z68.41 Body mass index [BMI] 40.0-44.9, adult; J18.9 Pneumonia, unspecified organism; E66.01 Morbid (severe) obesity due to excess calories; I11.9 Hypertensive heart disease without heart failure; E78.5 Hyperlipidemia, unspecified; F17.210 Nicotine dependence, cigarettes, uncomplicated; E87.70 Fluid overload, unspecified; M54.9 Dorsalgia, unspecified; Z88.0 Allergy status to penicillin; Z88.2 Allergy status to sulfonamides; Z88.8 Allergy status to other drugs, medicaments and biological substances; Z91.018 Allergy to other foods; Z83.3 Family history of diabetes mellitus; Z82.49 Family history of ischemic heart disease and other diseases of the circulatory system
CPT/HCPCS: 36415; 36600; 71045; 71250; 80053; 80202; 81001; 82550; 82553; 82805; 83518; 83690; 83880; 84484; 85025; 87040; 87070; 87205; 87400; 93005; 93306; 94640; 99284; J0456; J0696; J1940; J2930; J3370; J7030

== ENCOUNTER 2018-10-26 11:55 | Inpatient (IN) | payer OTHER ==
[~2018-10-26] VITALS: Ht 157.5 cm; Wt 106.1 kg
[~2018-10-26 11:55] MED LIST: FAMOTIDINE20 MG PO; GABAPENTIN100 MG; LEVAQUIN500 MG PO; NORCO 10-325 T1 EACH; PROAIR HFA INH8.5 GM IH; SIMVASTATIN40 MG PO; TRAZODONE HCL50 MG PO; VENLAFAXINE HCL75 M1 PO; ZETIA10 MG PO
[2018-10-26] MEDS ORDERED: ALBUTEROL SULF 0.083% NEB SOLN 3 ML NEB NEB STA (11:59)
[2018-10-26] MEDS ORDERED: IPRATROPIUM BROMIDE 0.02% 2.5 ML NEB NEB STA (11:59)
[2018-10-26] MEDS ORDERED: METHYLPREDNISOLONE SOD SUCC 125 MG/2ML VIAL IV ONE (12:15)
[2018-10-26] MEDS ORDERED: ACETAMINOPHEN/CODEINE ELIX 120-12 MG/5 ML UDC PO ONE (12:15)
[2018-10-26] MEDS ORDERED: GABAPENTIN300 MG PO (12:19)
[2018-10-26] MEDS ORDERED: CHANTIX1 MG PO (12:19)
[2018-10-26] MEDS ORDERED: PREDNISONE10 MG (12:19)
[2018-10-26] MEDS ORDERED: TIZANIDINE HCL4 MG PO (12:19)
[2018-10-26] MEDS ORDERED: CEFUROXIME500 MG (12:19)
[2018-10-26 12:27] LABS: BILIRUBIN,URINE NEGATIVE (NEGATIVE); CLARITY,URINE SL CLOUDY (CLEAR); COLOR,URINE YELLOW (YELLOW); KETONES,URINE NEGATIVE (NEGATIVE); LEUKOCYTE ESTERASE ,URINE NEGATIVE (NEGATIVE); NITRITE,URINE NEGATIVE (NEGATIVE); PROTEIN,URINE DIPSTICK TRACE (NEGATIVE); URINE UROBILINOGEN 0.2 mg/dL (0.2 - 1)
[2018-10-26 12:52] LABS: BASOPHILS # (AUTO) 0.1 (0.0-0.1); BASOPHILS % 0.5 % (0.0-1.0); EOSINOPHILS % 0.2 % (0.0-6.0); HEMATOCRIT 43.8 % (34.2-44.1); HEMOGLOBIN 14.6 g/dL (12.0-16.0); LYMPHOCYTES # (AUTO) 2.1 (1.0-3.2); LYMPHOCYTES % 20.8 % (18.0-39.1); MEAN CORPUSCULAR HEMOGLOBIN 31.7 pg (28-32); MEAN CORPUSCULAR HGB CONC 33.3 g/dL (31-35); MEAN CORPUSCULAR VOLUME 95.2 fL (81-99); MONOCYTES # (AUTO) 0.5 (0.2-0.8); MONOCYTES % 4.9 % (4.4-11.3); NEUTROPHILS # (AUTO) 7.4 (2.1-6.9); NEUTROPHILS % 73.2 % (38.7-80.0); PLATELET COUNT 297 x10e3/uL (140-360); RED CELL DISTRIBUTION WIDTH 13.7 % (11.7-14.4)
[2018-10-26 12:58] LABS: EPITHELIAL CELLS,URINE FEW /LPF
[2018-10-26 13:02] LABS: INR 0.84; PARTIAL THROMBOPLASTIN TIME 24.1 seconds (23.8-35.5)
[2018-10-26 13:09] LABS: ALANINE AMINOTRANSFERASE 30 IU/L (0-55); ALBUMIN 3.9 g/dL (3.5-5.0); ALKALINE PHOSPHATASE 85 IU/L (40-150); ANION GAP 13.9 mmol/L (8-16); BLOOD UREA NITROGEN 9 mg/dL (7-26); BUN/CREATININE RATIO 13 (6-25); CALCIUM 9.6 mg/dL (8.4-10.2); CARBON DIOXIDE 29 mmol/L (22-29); CHLORIDE 101 mmol/L (98-107); CREATINE KINASE 84 IU/L (29-168); CREATININE, SERUM 0.72 mg/dL (0.57-1.11); EST GLOMERULAR FILTRATION RATE > 60 ML/MIN (60-); GLUCOSE 89 mg/dL (74-118); POTASSIUM 3.9 mmol/L (3.5-5.1); SODIUM 140 mmol/L (136-145)
--- NOTE | 2018-10-26 13:16 | Diagnostic Imaging Report ---
EXAMINATION: PA and lateral views of the chest. COMPARISON: CT chest 10/12/2018, chest radiograph 10/10/2018 CLINICAL HISTORY: Shortness of breath DISCUSSION: Lungs are well-inflated. Interval resolution of right upper lobe airspace disease and improvement in lingular airspace disease. No new consolidation or effusion. Stable cardiomediastinal contour without overt pulmonary edema. No acute osseous abnormality. IMPRESSION: Radiographic resolution of right upper lobe and radiographic improvement in lingular pneumonia relative to 10/10/2018. Signed by: Dr. Jeffry Pacheco M.D. on 10/26/2018 1:13 PM
[2018-10-26] MEDS ORDERED: AZTREONAM 2GM/NS 100ML 100 ML IV SCH ×2 (14:00)
[2018-10-26] MEDS ORDERED: VANCOMYCIN 1GM/NS 250 ML 250 ML IV ONE (14:30)
[2018-10-26] MEDS: ALBUTEROL SULF 0.083% NEB SOLN 3 ML NEB NEB SCH ×3 (14:45→23:00)
[2018-10-26] MEDS: CEFEPIME 2 GM/NS 0.9% 100 ML 100 ML IV SCH (16:56)
[2018-10-26] MEDS ORDERED: GABAPENTIN 300 MG CAP PO PRN (17:45)
[2018-10-26] MEDS ORDERED: TIZANIDINE HCL 4 MG TAB PO PRN (17:45)
[2018-10-26] MEDS: IPRATROPIUM BROMIDE 0.02% 2.5 ML NEB NEB SCH ×2 (21:00→23:00)
[2018-10-26] MEDS ORDERED: HEPARIN SOD (PORCINE) 5,000 UNIT/ML VIAL SC SCH (21:00)
[2018-10-26 21:13] LABS: CREATINE KINASE 72 IU/L (29-168)
[2018-10-26] MEDS: TRAZODONE HCL 50 MG TAB PO SCH (21:51)
[2018-10-26] MEDS: SIMVASTATIN 40 MG TAB PO SCH (21:51)
--- NOTE | 2018-10-26 22:35 | Consultation ---
DATE OF CONSULTATION: Pulmonary Consultation The patient of Dr. Joe and Dr. Alcala. HISTORY OF PRESENT ILLNESS: Charming, but unfortunate 63-year-old woman admitted to the hospital approximately three weeks ago with influenza B and bacterial pneumonia. She was discharged on Ceftin, but did not feel that she improved with low-grade fever and productive cough. She is trying to quit smoking, but started smoking, despite Chantix. She has a history of diastolic heart failure. She denies hypertension, however. ALLERGIES: SHE IS ALLERGIC TO PENICILLIN, SULFA, ASPIRIN, AND TAPE. PAST SURGICAL HISTORY: Temperature was as high as 100.1, fractured the clavicle as a teen and five back operations. SOCIAL HISTORY: No alcohol use. Smokes half to a pack a day. She has done for 37 years. She has weakness in the left leg. FAMILY HISTORY: Positive for polycythemia and hypertension. PHYSICAL EXAMINATION: GENERAL: This is a well-developed jovial white female in no acute distress. Appears stated age, eating supper. VITAL SIGNS: Temperature 98, pulse 94, respirations 18, blood pressure 128/60. HEAD: Normocephalic, atraumatic. LUNGS: Few rhonchi. HEART: Regular rhythm. ABDOMEN: Nontender. EXTREMITIES: Nonedematous. IMPRESSION: Persisting cough, bronchitis, resolving pneumonia. We will request follow up CT scan because of the body habitus, it is difficult interpret her chest, lungs today. Continue bronchodilators, cigarette smoking cessation. Antibiotics resume home medications including Pepcid, Neurontin, prednisone, Zocor, Zanaflex, trazodone, Chantix, therapy. Thank you for this kind referral. MD JOMAR Valderrama/MODL /[id number]
[2018-10-27] VITALS (8 sets, daily range): BP systolic 134–164; BP diastolic 66–91
[2018-10-27] MEDS: IPRATROPIUM BROMIDE 0.02% 2.5 ML NEB NEB SCH ×6 (00:54→18:38)
[2018-10-27] MEDS: ALBUTEROL SULF 0.083% NEB SOLN 3 ML NEB NEB SCH ×6 (00:54→18:38)
[2018-10-27] MEDS ORDERED: SODIUM CHLORIDE 0.9% 250ML 250 ML ONE (03:37)
[2018-10-27] MEDS: CEFEPIME 2 GM/NS 0.9% 100 ML 100 ML IV SCH ×2 (04:15→14:29)
[2018-10-27 07:12] LABS: BASOPHILS % 0.1 % (0.0-1.0); HEMATOCRIT 39.6 % (34.2-44.1); HEMOGLOBIN 12.9 g/dL (12.0-16.0); LYMPHOCYTES # (AUTO) 1.3 (1.0-3.2); LYMPHOCYTES % 12.7 % (18.0-39.1); MEAN CORPUSCULAR HEMOGLOBIN 31.2 pg (28-32); MEAN CORPUSCULAR HGB CONC 32.6 g/dL (31-35); MEAN CORPUSCULAR VOLUME 95.9 fL (81-99); MONOCYTES # (AUTO) 0.4 (0.2-0.8); MONOCYTES % 3.4 % (4.4-11.3); NEUTROPHILS # (AUTO) 8.8 (2.1-6.9); NEUTROPHILS % 83.1 % (38.7-80.0); PLATELET COUNT 258 x10e3/uL (140-360); RED BLOOD COUNT 4.13 x10e6/uL (3.6-5.1); RED CELL DISTRIBUTION WIDTH 13.8 % (11.7-14.4)
[2018-10-27 07:30] LABS: ALANINE AMINOTRANSFERASE 26 IU/L (0-55); ALBUMIN 3.6 g/dL (3.5-5.0); ALKALINE PHOSPHATASE 78 IU/L (40-150); ANION GAP 14.2 mmol/L (8-16); BLOOD UREA NITROGEN 14 mg/dL (7-26); BUN/CREATININE RATIO 19 (6-25); CALCIUM 9.3 mg/dL (8.4-10.2); CARBON DIOXIDE 26 mmol/L (22-29); CHLORIDE 101 mmol/L (98-107); CREATININE, SERUM 0.73 mg/dL (0.57-1.11); EST GLOMERULAR FILTRATION RATE > 60 ML/MIN (60-); GLUCOSE 149 mg/dL (74-118); POTASSIUM 4.2 mmol/L (3.5-5.1); SODIUM 137 mmol/L (136-145)
[2018-10-27] MEDS ORDERED: PREDNISONE 10 MG TAB PO SCH (07:30)
[2018-10-27 07:37] LABS: CREATINE KINASE MB 2.3 ng/mL (0-5.0)
--- NOTE | 2018-10-27 07:43 | Diagnostic Imaging Report ---
EXAMINATION: CT scan of the chest without contrast. TECHNIQUE: Spiral CT images of the chest were performed from the lung apices to the level of the adrenal glands. No intravenous contrast was administered per referring physician request. Coronal and sagittal reformatted images were obtained. COMPARISON: CT chest 10/12/2018 CLINICAL HISTORY:COPD exacerbation, pneumonia DISCUSSION: ABSENCE OF INTRAVENOUS CONTRAST DECREASES SENSITIVITY FOR DETECTION OF FOCAL LESIONS AND VASCULAR PATHOLOGY. LINES/TUBES: None. LUNGS AND AIRWAYS: Nodular juxtapleural consolidation in the medial left upper lobe has improved, with interval decrease in size. Similarly, lingular atelectasis or consolidation along the major fissure has improved. Persistent wedge-shaped foci of consolidation in the dependent lower lobes, which nearly resolve on prone imaging, compatible with subsegmental atelectasis. Consolidation and groundglass opacities within the lateral segment of the right middle lobe (series 3 image 54 on prior) have nearly completely resolved. No new consolidations. Stable mild background emphysematous changes. The airways are normal, without endobronchial lesions. PLEURA: No pneumothorax or pleural effusions. HEART AND MEDIASTINUM: The thyroid gland is normal. No ectasia or aneurysmal dilatation of the thoracic aorta. Pulmonary outflow tract is mildly dilated (35 mm). Atherosclerotic coronary artery calcifications. No pericardial effusion. LYMPH NODES: There is no mediastinal, hilar or axillary lymphadenopathy. ABDOMEN: Visualized portions of the liver, spleen, pancreas, adrenals, and upper poles of the kidneys are unremarkable. BONES AND SOFT TISSUES: No acute bony abnormalities. IMPRESSION: Continued improvement in multifocal pneumonia relative to 10/12/2018. No new consolidations. Persistent bibasilar subsegmental atelectasis. Mild background emphysematous changes. Mild dilatation of the pulmonary outflow tract suggests pulmonary hypertension. Atherosclerotic vascular disease. Signed by: Dr. Jeffry Pacheco M.D. on 10/27/2018 7:40 AM
[2018-10-27] MEDS: FAMOTIDINE 20 MG TAB PO SCH (08:22)
[2018-10-27] MEDS ORDERED: VENLAFAXINE HCL 75 MG CAPCR PO SCH (09:00)
[2018-10-27] MEDS ORDERED: VARENICLINE 1 MG TAB PO SCH (09:00)
[2018-10-27 17:23] LABS: CREATINE KINASE 107 IU/L (29-168)
[2018-10-27] MEDS: SIMVASTATIN 40 MG TAB PO SCH (21:17)
[2018-10-27] MEDS: METHYLPREDNISOLONE SOD SUCC 40 MG/ML VIAL 1ML IV SCH (21:17)
[2018-10-27] MEDS: TRAZODONE HCL 50 MG TAB PO SCH (21:17)
[2018-10-27] MEDS: VENLAFAXINE HCL 75 MG CAPCR PO SCH (21:17)
[2018-10-27] MEDS: HYDROCODONE/APAP 5MG-325MG TAB PO PRN (21:18)
[2018-10-27] MEDS: VARENICLINE 1 MG TAB PO SCH (21:57)
[2018-10-28] VITALS (8 sets, daily range): BP systolic 120–168; BP diastolic 61–86
[2018-10-28] MEDS: CEFEPIME 2 GM/NS 0.9% 100 ML 100 ML IV SCH ×2 (02:15→14:42)
[2018-10-28] MEDS: IPRATROPIUM BROMIDE 0.02% 2.5 ML NEB NEB SCH ×6 (04:55→23:25)
[2018-10-28] MEDS: ALBUTEROL SULF 0.083% NEB SOLN 3 ML NEB NEB SCH ×6 (04:55→23:25)
[2018-10-28] MEDS: VARENICLINE 1 MG TAB PO SCH ×2 (09:00→22:00)
[2018-10-28] MEDS: METHYLPREDNISOLONE SOD SUCC 40 MG/ML VIAL 1ML IV SCH ×2 (09:00→21:15)
[2018-10-28] MEDS: FAMOTIDINE 20 MG TAB PO SCH (09:00)
--- NOTE | 2018-10-28 09:58 | Progress Note ---
DATE: SUBJECTIVE: Ms. Gilman is a 63-year-old female with history of tobacco use, COPD, hyperlipidemia, back pain, insomnia, depression, reflux, who was recently discharged from [facility] with COPD exacerbation, pneumonia, came back to the emergency room with pain. She is not feeling better. She got worse again with shortness of breath, wheezing, and fever. She was admitted to the hospital. She is being followed up also by Pulmonary. PHYSICAL EXAMINATION: GENERAL: Today, she is awake. VITAL SIGNS: Temperature is 98.7, blood pressure 143/76, she is feeling a little better. HEART: Regular rate. LUNGS: Decreased breath sounds bilaterally. ABDOMEN: Soft. EXTREMITIES: Lower extremity, no edema, no erythema. LABORATORY DATA: Blood work; potassium 4.2, creatinine is 0.72, glucose is 149. White count 10.5, hemoglobin is 12.9, hematocrit is 39.6. Blood cultures have been so far negative. Urine culture preliminary has been noticed for no growth. She had a CAT scan of the chest done yesterday that shows a continued improvement of multifocal pneumonia, bibasilar atelectases, mild emphysematous changes. ASSESSMENT: 1. Multifocal pneumonia. 2. Chronic obstructive pulmonary disease exacerbation. 3. Pulmonary hypertension. 4. Hypertension. 5. Hyperlipidemia. 6. Tobacco use. 7. Chronic back pain. 8. Depression. 9. Insomnia. PLAN: Plan at the present time is to continue IV antibiotics, continue IV steroids, continue neb treatments. We are going to also continue her home medications that are Effexor, trazodone, simvastatin, famotidine, Neurontin, and Zanaflex. All this was discussed with the patient. All questions were answered to satisfaction. We will continue to follow her. Thank you, Dr. Melendez for the consult. MD HAMLET Emmanuel/MERCEDES /[id number]
[2018-10-28] MEDS: HYDROCODONE/APAP 5MG-325MG TAB PO PRN ×2 (13:47→22:02)
[2018-10-28] MEDS: SIMVASTATIN 40 MG TAB PO SCH (21:15)
[2018-10-28] MEDS: TRAZODONE HCL 50 MG TAB PO SCH (21:15)
[2018-10-28] MEDS: VENLAFAXINE HCL 75 MG CAPCR PO SCH (21:15)
[2018-10-29] VITALS (8 sets, daily range): BP systolic 115–176; BP diastolic 56–85
[2018-10-29] MEDS: CEFEPIME 2 GM/NS 0.9% 100 ML 100 ML IV SCH ×2 (02:07→14:00)
[2018-10-29] MEDS: ALBUTEROL SULF 0.083% NEB SOLN 3 ML NEB NEB SCH ×6 (03:01→22:50)
[2018-10-29] MEDS: IPRATROPIUM BROMIDE 0.02% 2.5 ML NEB NEB SCH ×6 (03:01→22:50)
[2018-10-29] MEDS: METHYLPREDNISOLONE SOD SUCC 40 MG/ML VIAL 1ML IV SCH (09:00)
[2018-10-29] MEDS: FAMOTIDINE 20 MG TAB PO SCH (09:00)
[2018-10-29] MEDS: VARENICLINE 1 MG TAB PO SCH ×2 (09:00→22:12)
--- NOTE | 2018-10-29 10:41 | Progress Note ---
DATE: 10/29/2018 SUBJECTIVE: Ms. Gilman is a 63-year-old female with history of COPD, hypertension, history of tobacco use recently, history of pneumonia. Discharged home. She did not feel better. She had to come back to the emergency room because she was still coughing with shortness of breath. She is on IV steroids and IV antibiotics. PHYSICAL EXAMINATION: GENERAL: She is awake and alert. VITAL SIGNS: Temperature is 96.8, blood pressure 125/68. She is feeling better. HEART: Regular rate. LUNGS: Clear to auscultation. ABDOMEN: Soft. LABORATORY DATA: On the blood work; potassium is 4.2, creatinine is 0.73, glucose is 149. White count 10.5. Chest CT showed improvement of multifocal pneumonia she had with some increase in mental status changes and pulmonary hypertension. She had a pulmonary function test done yesterday. Dr. Melendez is following the patient with me. ASSESSMENT: 1. Multifocal pneumonia, on IV antibiotics. 2. Chronic obstructive pulmonary disease exacerbation. 3. Tobacco use. 4. Hypertension. 5. Hyperlipidemia. PLAN: Plan at the present time is to continue IV antibiotics and IV steroids. Continue to monitor respiratory status. We are going to prescribe a nebulizer machine. She had PFTs done yesterday. We will discuss with Dr. Melendez further options, so far the patient is doing better. MD HAMLET Emmanuel/MERCEDES /[id number]
--- NOTE | 2018-10-29 15:58 | Pulmonary Function Test ---
DATE OF STUDY: REFERRING PHYSICIAN: NAME OF STUDY: Spirometry. The patient of Dr. Joe. FINDINGS: Restrictive spirometry and forced vital capacity 1.36 L, 45% of predicted. FEV1 1.19 L, 51% of predicted. FEV1/FVC ratio 88%, FEF 25-75 of 74%. There is paradoxical decline following inhalation of bronchodilators. MD JOMAR Valderrama/MODL /[id number]
[2018-10-29] MEDS: VENLAFAXINE HCL 75 MG CAPCR PO SCH (22:12)
[2018-10-29] MEDS: SIMVASTATIN 40 MG TAB PO SCH (22:12)
[2018-10-29] MEDS: TRAZODONE HCL 50 MG TAB PO SCH (22:12)
[2018-10-29] MEDS: EZETIMIBE 10 MG TAB PO SCH (22:12)
[2018-10-29] MEDS: HYDROCODONE/APAP 5MG-325MG TAB PO PRN (22:20)
[2018-10-30] VITALS (7 sets, daily range): BP systolic 119–161; BP diastolic 60–90
[2018-10-30] MEDS: CEFEPIME 2 GM/NS 0.9% 100 ML 100 ML IV SCH ×2 (01:28→14:40)
[2018-10-30] MEDS: IPRATROPIUM BROMIDE 0.02% 2.5 ML NEB NEB SCH ×6 (02:54→23:10)
[2018-10-30] MEDS: ALBUTEROL SULF 0.083% NEB SOLN 3 ML NEB NEB SCH ×6 (02:54→23:10)
[2018-10-30] MEDS: METHYLPREDNISOLONE SOD SUCC 40 MG/ML VIAL 1ML IV SCH (09:00)
[2018-10-30] MEDS: FAMOTIDINE 20 MG TAB PO SCH (09:00)
[2018-10-30] MEDS: VARENICLINE 1 MG TAB PO SCH ×2 (09:00→21:58)
[2018-10-30] MEDS ORDERED: FUROSEMIDE INJ 10 MG/ML 4 ML VIAL IV NR ×2 (13:00→16:30)
--- NOTE | 2018-10-30 15:09 | Diagnostic Imaging Report ---
EXAMINATION: CHEST SINGLE (PORTABLE) INDICATION: ^pneumonia and CHF ^[id number] ^[id number] COMPARISON: CT chest 10/27/2018 and chest radiograph 10/26/2018 FINDINGS: AP view TUBES and LINES: None. LUNGS: Suboptimal evaluation of the lungs due to overlying soft tissue breast attenuation. Bilateral interstitial edema. Subsegmental atelectasis in both lung bases are unchanged. No new consolidations. PLEURA: No pleural effusion or pneumothorax. HEART AND MEDIASTINUM: Stable enlargement of the cardiac silhouette. BONES AND SOFT TISSUES: No acute osseous lesion. Soft tissues are unremarkable. UPPER ABDOMEN: No free air under the diaphragm. IMPRESSION: Stable cardiomegaly with associated bilateral interstitial edema. No new consolidations. Signed by: Dr. Verito Boyd M.D. on 10/30/2018 3:06 PM
[2018-10-30] MEDS: VANCOMYCIN 1GM/NS 250 ML 250 ML IV SCH (17:00)
[2018-10-30] MEDS: SIMVASTATIN 40 MG TAB PO SCH (20:59)
[2018-10-30] MEDS: TRAZODONE HCL 50 MG TAB PO SCH (20:59)
[2018-10-30] MEDS: VENLAFAXINE HCL 75 MG CAPCR PO SCH (20:59)
[2018-10-30] MEDS: EZETIMIBE 10 MG TAB PO SCH (20:59)
[2018-10-30] MEDS: HYDROCODONE/APAP 5MG-325MG TAB PO PRN (21:25)
[2018-10-31] VITALS (9 sets, daily range): BP systolic 109–172; BP diastolic 53–89
[2018-10-31] MEDS: CEFEPIME 2 GM/NS 0.9% 100 ML 100 ML IV SCH ×2 (01:43→15:06)
[2018-10-31] MEDS: ALBUTEROL SULF 0.083% NEB SOLN 3 ML NEB NEB SCH ×6 (03:00→23:55)
[2018-10-31] MEDS: IPRATROPIUM BROMIDE 0.02% 2.5 ML NEB NEB SCH ×6 (03:00→23:55)
[2018-10-31 05:37] LABS: BASOPHILS % 0.3 % (0.0-1.0); EOSINOPHILS # (AUTO) 0.1 (0.0-0.4); EOSINOPHILS % 0.9 % (0.0-6.0); HEMATOCRIT 42.4 % (34.2-44.1); LYMPHOCYTES # (AUTO) 2.4 (1.0-3.2); LYMPHOCYTES % 24.4 % (18.0-39.1); MEAN CORPUSCULAR HEMOGLOBIN 31.2 pg (28-32); MEAN CORPUSCULAR VOLUME 94.4 fL (81-99); MONOCYTES # (AUTO) 0.7 (0.2-0.8); MONOCYTES % 6.6 % (4.4-11.3); NEUTROPHILS # (AUTO) 6.6 (2.1-6.9); NEUTROPHILS % 66.9 % (38.7-80.0); PLATELET COUNT 259 x10e3/uL (140-360); RED BLOOD COUNT 4.49 x10e6/uL (3.6-5.1); RED CELL DISTRIBUTION WIDTH 13.9 % (11.7-14.4)
[2018-10-31 05:57] LABS: ALANINE AMINOTRANSFERASE 29 IU/L (0-55); ALBUMIN 3.4 g/dL (3.5-5.0); ALBUMIN/GLOBULIN RATIO 1.1 (0.8-2.0); ALKALINE PHOSPHATASE 68 IU/L (40-150); ANION GAP 11.8 mmol/L (8-16); BLOOD UREA NITROGEN 18 mg/dL (7-26); BUN/CREATININE RATIO 24 (6-25); CALCIUM 8.9 mg/dL (8.4-10.2); CARBON DIOXIDE 30 mmol/L (22-29); CHLORIDE 100 mmol/L (98-107); CREATININE, SERUM 0.76 mg/dL (0.57-1.11); EST GLOMERULAR FILTRATION RATE > 60 ML/MIN (60-); GLUCOSE 108 mg/dL (74-118); POTASSIUM 3.8 mmol/L (3.5-5.1); SODIUM 138 mmol/L (136-145)
[2018-10-31] MEDS: VANCOMYCIN 1GM/NS 250 ML 250 ML IV SCH ×2 (06:04→17:53)
[2018-10-31] MEDS: VARENICLINE 1 MG TAB PO SCH ×2 (08:32→22:37)
[2018-10-31] MEDS: METHYLPREDNISOLONE SOD SUCC 40 MG/ML VIAL 1ML IV SCH (08:32)
[2018-10-31] MEDS: FAMOTIDINE 20 MG TAB PO SCH (08:32)
[2018-10-31] MEDS: SIMVASTATIN 40 MG TAB PO SCH (20:09)
[2018-10-31] MEDS: VENLAFAXINE HCL 75 MG CAPCR PO SCH (20:09)
[2018-10-31] MEDS: EZETIMIBE 10 MG TAB PO SCH (20:09)
[2018-10-31] MEDS: TRAZODONE HCL 50 MG TAB PO SCH (22:37)
[2018-10-31] MEDS: HYDROCODONE/APAP 5MG-325MG TAB PO PRN (22:38)
[2018-11-01] VITALS (7 sets, daily range): BP systolic 105–136; BP diastolic 57–86
[2018-11-01] MEDS: ALBUTEROL SULF 0.083% NEB SOLN 3 ML NEB NEB SCH ×6 (00:18→19:33)
[2018-11-01] MEDS: IPRATROPIUM BROMIDE 0.02% 2.5 ML NEB NEB SCH ×6 (00:19→19:33)
[2018-11-01] MEDS: CEFEPIME 2 GM/NS 0.9% 100 ML 100 ML IV SCH (01:34)
[2018-11-01 05:06] LABS: BASOPHILS % 0.2 % (0.0-1.0); EOSINOPHILS # (AUTO) 0.1 (0.0-0.4); HEMATOCRIT 42.7 % (34.2-44.1); HEMOGLOBIN 13.5 g/dL (12.0-16.0); LYMPHOCYTES # (AUTO) 2.4 (1.0-3.2); LYMPHOCYTES % 21.8 % (18.0-39.1); MEAN CORPUSCULAR HEMOGLOBIN 30.8 pg (28-32); MEAN CORPUSCULAR HGB CONC 31.6 g/dL (31-35); MONOCYTES # (AUTO) 0.8 (0.2-0.8); MONOCYTES % 6.9 % (4.4-11.3); NEUTROPHILS # (AUTO) 7.7 (2.1-6.9); NEUTROPHILS % 69.2 % (38.7-80.0); PLATELET COUNT 247 x10e3/uL (140-360); RED BLOOD COUNT 4.38 x10e6/uL (3.6-5.1)
[2018-11-01 05:08] LABS: MEAN CORPUSCULAR VOLUME 97.5 fL (81-99)
[2018-11-01 05:29] LABS: ALANINE AMINOTRANSFERASE 33 IU/L (0-55); ALBUMIN 3.4 g/dL (3.5-5.0); ALBUMIN/GLOBULIN RATIO 1.1 (0.8-2.0); ALKALINE PHOSPHATASE 68 IU/L (40-150); ANION GAP 12.8 mmol/L (8-16); BLOOD UREA NITROGEN 16 mg/dL (7-26); BUN/CREATININE RATIO 21 (6-25); CALCIUM 9.4 mg/dL (8.4-10.2); CARBON DIOXIDE 32 mmol/L (22-29); CHLORIDE 99 mmol/L (98-107); CREATININE, SERUM 0.75 mg/dL (0.57-1.11); EST GLOMERULAR FILTRATION RATE > 60 ML/MIN (60-); GLUCOSE 145 mg/dL (74-118); POTASSIUM 3.8 mmol/L (3.5-5.1); SODIUM 140 mmol/L (136-145)
[2018-11-01] MEDS: VANCOMYCIN 1GM/NS 250 ML 250 ML IV SCH (06:04)
[2018-11-01] MEDS: METHYLPREDNISOLONE SOD SUCC 40 MG/ML VIAL 1ML IV SCH (09:00)
[2018-11-01] MEDS: VARENICLINE 1 MG TAB PO SCH ×2 (09:08→21:40)
[2018-11-01] MEDS: FAMOTIDINE 20 MG TAB PO SCH (09:08)
--- NOTE | 2018-11-01 10:29 | Progress Note ---
DATE: 11/01/2018 SUBJECTIVE: Ms. Gilman is a 63-year-old female with history of COPD, hypertension, and history of tobacco use, recently discharged from [facility] because she had pneumonia. She had to come back to the emergency room with shortness of breath and cough, started on IV steroids and IV antibiotics. One blood culture yesterday came back positive for cocci. She is being followed up by Pulmonary. We are going to get Infectious Disease involved to see if there is any relevance on these positive blood cultures. PHYSICAL EXAMINATION: GENERAL: Today, she is awake and alert. She is feeling better. VITAL SIGNS: Temperature is 97.9, blood pressure is 105/57. HEART: Regular rate. LUNGS: Decreased breath sounds bilaterally. ABDOMEN: Distended and soft. LABORATORY DATA: On the blood work; potassium 3.8, creatinine is 0.75, glucose is 145. White count went up to 11.14, but the patient is on steroids. Urine culture negative. Blood culture negative. The other blood culture shows gram-positive cocci in clusters. Chest x-ray done on the shows stable cardiomegaly with associated bilateral interstitial edema, no new consolidations. ASSESSMENT: 1. Multifocal pneumonia, on IV antibiotics, improving. 2. Chronic obstructive pulmonary disease exacerbation. 3. Tobacco use. 4. Hypertension. 5. Hyperlipidemia. 6. Blood culture with positive cocci in clusters. PLAN: The plan at present time is to continue IV antibiotics, continue steroids, continue her cholesterol medication. Like I said, Dr. Melendez is following patient with me. We are going to get Infectious Disease, Dr. Lebron evaluate her for this positive blood culture. If stable and if rest of her workup is negative, she may be able to go home tomorrow. All this was discussed with the patient. All questions were answered to satisfaction. I spent more than 35 minutes examining patient, reviewing weekend events, lab results, x-ray, and discussing plan of care with her. MD HAMLET Emmanuel/MERCEDES /[id number]
[2018-11-01] MEDS: LEVOFLOXACIN 500 MG TAB PO SCH (17:26)
--- NOTE | 2018-11-01 19:06 | Consultation ---
DATE OF CONSULTATION: REASON FOR CONSULTATION: Pneumonia, recommendation of antibiotic. Thank you so much for asking me to see this patient. HISTORY OF PRESENT ILLNESS: This patient who is a 63-year-old white female with history of COPD, history of obesity. She was recently in the hospital with pneumonia. The patient also continued to smoke. She has hyperlipidemia, back pain, insomnia, depression, and reflux disease. She was recently in the hospital with COPD exacerbation, pneumonia. She was discharged with oral antibiotic and she saw a physician because she was not feeling any better and she gave her a different course of oral antibiotic, which she is not so sure of. She is also give prednisone, but her fever got worse, so the patient came here, she was started on IV antibiotic and she is doing better. When she first came here back on October 08 she was discharged on October 13. The patient had flu. She was treated with Tamiflu. She also was discharged with Levaquin. But she is coming back here with the above complaint. Her blood cultures on the came back gram-positive cocci by cluster, but no growth so far, it was one set. Her white count is 11.14, hemoglobin 13.5, hematocrit 42, her platelet 247. Her sodium 140, potassium 3.8, creatinine 0.75. Liver enzyme within normal limit. MEDICATION LIST: She is currently on Chantix, Pepcid, vancomycin, cefepime, Zocor. SOCIAL HISTORY: She continued to smoke. ALLERGIES: PENICILLIN AND SULFA DRUGS. REVIEW OF SYSTEMS: GENERAL: She is telling me she is feeling better since she came here. HEENT: There is no headache, visual changes, or hearing changes. GI: There is no nausea. No vomiting. No diarrhea. CARDIAC: There is no arrhythmia. NEURO: Seizure activity. The patient is telling me that she is not on home oxygen, although right now she is on oxygen. I have reviewed her records since she came here. PHYSICAL EXAMINATION: GENERAL: She is currently alert, oriented, does not seem to be in acute distress. VITAL SIGNS: Stable, currently afebrile. HEENT: Normocephalic. Not icteric. CHEST: Few crackles. COR: S1, S2. No S3, S4, or murmur. ABDOMEN: Soft. Bowel sounds present. No tenderness. EXTREMITIES: No edema. IMPRESSION AND PLAN: Pneumonia with very slow progress, currently better but continued to have symptoms of hypoxemic in a patient, who has twice been admitted with antibiotic. Continue her IV antibiotic and steroids. I would suggest patient to be discharged home with Levaquin 750 mg p.o. daily for 3 weeks to treat possibility of atypical pneumonia such as mycoplasma or Legionella. Prednisone 20 mg p.o. daily for three weeks. Follow up as outpatient and reassessed as an outpatient. We will follow. MD RON Mitchell/MERCEDES /[id number]
[2018-11-01] MEDS: EZETIMIBE 10 MG TAB PO SCH (21:40)
[2018-11-01] MEDS: TRAZODONE HCL 50 MG TAB PO SCH (21:40)
[2018-11-01] MEDS: SIMVASTATIN 40 MG TAB PO SCH (21:40)
[2018-11-01] MEDS: VENLAFAXINE HCL 75 MG CAPCR PO SCH (21:40)
[2018-11-01] MEDS: HYDROCODONE/APAP 5MG-325MG TAB PO PRN (21:54)
[2018-11-02] VITALS: BP 111/55
[2018-11-02] MEDS: IPRATROPIUM BROMIDE 0.02% 2.5 ML NEB NEB SCH ×3 (03:00→11:05)
[2018-11-02] MEDS: ALBUTEROL SULF 0.083% NEB SOLN 3 ML NEB NEB SCH ×3 (03:00→11:05)
[2018-11-02 04:00] VITALS: BP 118/68
[2018-11-02] MEDS: VARENICLINE 1 MG TAB PO SCH (07:49)
[2018-11-02] MEDS: LEVOFLOXACIN 500 MG TAB PO SCH (07:49)
[2018-11-02] MEDS: FAMOTIDINE 20 MG TAB PO SCH (07:49)
[2018-11-02 08:04] VITALS: BP 101/67
[2018-11-02 08:26] VITALS: BP 101/67
[2018-11-02] MEDS ORDERED: PREDNISONE 20 MG TAB PO SCH (09:00)
[2018-11-02 11:51] VITALS: BP 151/89
[2018-11-02] MEDS ORDERED: LEVAQUIN500 MG PO (12:38)
[2018-11-02] MEDS ORDERED: PREDNISONE20 MG PO (12:39)
--- NOTE | 2018-11-03 05:18 | Discharge Summary ---
HOSPITAL COURSE: Ms. Gilman is a 63-year-old female with history of tobacco use, COPD, obesity, depression, insomnia, recently admitted to [facility] with positive influenza and pneumonia. Discharged on p.o. antibiotics. Did improve for a little while and then she felt worse again, so she had to come back to the emergency room. She was started on IV antibiotics and IV steroids. She has been seen by Pulmonary and Infectious Disease, especially for one only positive blood culture. At present time, the patient is doing okay and the plan is to discharge her home on p.o. antibiotics and steroids. PHYSICAL EXAMINATION: GENERAL: Today, she is awake and alert. She wants to go home. VITAL SIGNS: Temperature is 98.7, pulse is 75, blood pressure 101/67, O2 saturation on room air is 98%. HEART: Regular rate. LUNGS: Decreased breath sounds bilateral. ABDOMEN: Distended and soft. LABORATORY DATA: On the blood work, potassium 3.8, creatinine is 0.75, glucose 145. White count is 11.1, hemoglobin 13.5, hematocrit 42.7. One blood culture negative. Urine culture negative. Another blood culture shows gram-positive cocci, probably contamination. Chest x-ray shows a stable cardiomegaly with bilateral interstitial edema. No new consolidations. DISCHARGE DIAGNOSES: 1. Multifocal pneumonia. 2. Chronic obstructive pulmonary disease exacerbation. 3. Tobacco abuse. 4. Hypertension. 5. Hyperlipidemia. 6. Depression. 7. Chronic back pain. PLAN: At the present time, if it is okay with the consultants she is to be discharged home on Levaquin 750 mg p.o. daily for three weeks and prednisone 20 mg daily also for three weeks. She needs follow up with me in the clinic in one week. She is to continue all her other home medications. She is to call me or come back to the emergency room if any recurrent problems. All this was discussed with the patient. All questions were answered to satisfaction. MD HAMLET Emmanuel/MERCEDES /[id number]
== END 2018-11-02 14:49 | disposition home or self-care (01) | DRG 193 ==
LOC: ER 11:55 → ERHOLD 14:01 → MED/SURG2 10-27 02:12
PROVIDERS: ADMIT Internal Medicine; ATTEND Internal Medicine
DX: J15.9 Unspecified bacterial pneumonia (principal); I50.33 Acute on chronic diastolic (congestive) heart failure; J44.0 Chronic obstructive pulmonary disease with (acute) lower respiratory infection; Z68.41 Body mass index [BMI] 40.0-44.9, adult; J44.1 Chronic obstructive pulmonary disease with (acute) exacerbation; I11.0 Hypertensive heart disease with heart failure; Z87.01 Personal history of pneumonia (recurrent); Z88.6 Allergy status to analgesic agent; Z88.0 Allergy status to penicillin; Z88.2 Allergy status to sulfonamides; Z91.048 Other nonmedicinal substance allergy status; E78.5 Hyperlipidemia, unspecified; M19.90 Unspecified osteoarthritis, unspecified site; Z72.0 Tobacco use; K21.9 Gastro-esophageal reflux disease without esophagitis; G47.00 Insomnia, unspecified; F32.9 Major depressive disorder, single episode, unspecified; R09.02 Hypoxemia; M54.9 Dorsalgia, unspecified; I27.20 Pulmonary hypertension, unspecified; E66.01 Morbid (severe) obesity due to excess calories; R53.81 Other malaise
CPT/HCPCS: 36415; 71045; 71046; 71250; 80053; 81001; 82550; 82553; 83880; 84484; 85025; 85610; 85730; 87040; 87071; 87086; 87205; 94060; 94640; 94667; 94668; 99284; J1644; J1940; J2920; J2930; J3370; J7050; J7512

== ENCOUNTER 2022-06-19 16:38 | Emergency (ER) | payer MEDICARE, OTHER ==
[~2022-06-19] VITALS: Ht 157.5 cm; Wt 106.1 kg
[~2022-06-19 16:38] MED LIST changes: +BENZONATATE200 MG PO; +CEFUROXIME500 MG; +CHANTIX1 MG PO; +GABAPENTIN300 MG PO; +MOLNUPIRAVIR (200 MG PO; +PREDNISONE10 MG; +PREDNISONE20 MG PO; +PROVENTIL HFA6.7 GM INH; +TIZANIDINE HCL4 MG PO
[2022-06-19] MEDS ORDERED: ALBUTEROL/IPRATROPIUM 3 ML NEB NEB ONE (17:30)
[2022-06-19] MEDS ORDERED: DEXAMETHASONE SOD PHOS 10 MG/1 ML VIAL IM ONE (17:30)
[2022-06-19] MEDS ORDERED: ALBUTEROL1.25 MG/3 NEB (18:02)
[2022-06-20] MEDS ORDERED: DOXYCYCLINE HY100 MG PO (21:54)
[2022-06-20] MEDS ORDERED: IPRAT-ALBUT 0.5-3 ML INH (22:01)
== END 2022-06-19 18:24 | disposition home or self-care (01) ==
LOC: ER 16:46
DX: R05.9 Cough, unspecified (principal); U07.1 COVID-19; J06.9 Acute upper respiratory infection, unspecified; J44.9 Chronic obstructive pulmonary disease, unspecified; I50.9 Heart failure, unspecified; E78.5 Hyperlipidemia, unspecified
CPT/HCPCS: 71046; 99283

== ENCOUNTER 2022-06-20 20:10 | Emergency (ER) | payer MEDICARE, OTHER ==
[~2022-06-20] VITALS: Ht 157.5 cm; Wt 106.1 kg
[~2022-06-20 20:10] MED LIST changes: +ALBUTEROL1.25 MG/3 NEB
[2022-06-20 20:46] LABS: BASOPHILS % 0.5 % (0.0-1.0); EOSINOPHILS # (AUTO) 0.2 (0.0-0.4); EOSINOPHILS % 2.4 % (0.0-6.0); HEMATOCRIT 43.5 % (34.2-44.1); HEMOGLOBIN 13.6 g/dL (12.0-16.0); LYMPHOCYTES # (AUTO) 1.9 (1.0-3.2); LYMPHOCYTES % 25.1 % (18.0-39.1); MEAN CORPUSCULAR HEMOGLOBIN 32.2 pg (28-32); MEAN CORPUSCULAR HGB CONC 31.3 g/dL (31-35); MEAN CORPUSCULAR VOLUME 102.8 fL (81-99); MONOCYTES # (AUTO) 0.5 (0.2-0.8); MONOCYTES % 6.6 % (4.4-11.3); NEUTROPHILS # (AUTO) 4.9 (2.1-6.9); NEUTROPHILS % 65.1 % (38.7-80.0); PLATELET COUNT 228 x10e3/uL (140-360); RED BLOOD COUNT 4.23 x10e6/uL (3.6-5.1); RED CELL DISTRIBUTION WIDTH 12.3 % (11.7-14.4)
[2022-06-20 21:05] LABS: ALANINE AMINOTRANSFERASE 18 IU/L (0-55); ALBUMIN 3.5 g/dL (3.5-5.0); ALBUMIN/GLOBULIN RATIO 0.9 (0.8-2.0); ALKALINE PHOSPHATASE 62 IU/L (40-150); ANION GAP 13.4 mmol/L (8-16); BLOOD UREA NITROGEN 7 mg/dL (7-26); BUN/CREATININE RATIO 9 (6-25); CALCIUM 8.7 mg/dL (8.4-10.2); CARBON DIOXIDE 26 mmol/L (22-29); CHLORIDE 106 mmol/L (98-107); CREATINE KINASE 177 IU/L (29-168); CREATININE, SERUM 0.75 mg/dL (0.57-1.11); GLUCOSE 120 mg/dL (74-118); POTASSIUM 3.4 mmol/L (3.5-5.1); SODIUM 142 mmol/L (136-145)
[2022-06-20] MEDS ORDERED: IOPAMIDOL 370 MG/ML 100 ML INFUS..BTL INJ ONE (21:27)
[2022-06-20] MEDS ORDERED: DOXYCYCLINE HY100 MG PO (21:54)
[2022-06-20] MEDS ORDERED: IPRAT-ALBUT 0.5-3 ML INH (22:01)
== END 2022-06-20 22:22 | disposition home or self-care (01) ==
LOC: ER 20:15
DX: R06.00 Dyspnea, unspecified (principal); U09.9 Post COVID-19 condition, unspecified; U07.1 COVID-19; R91.8 Other nonspecific abnormal finding of lung field; J40 Bronchitis, not specified as acute or chronic; J44.9 Chronic obstructive pulmonary disease, unspecified; I50.9 Heart failure, unspecified; E78.5 Hyperlipidemia, unspecified
CPT/HCPCS: 36415; 71045; 71260; 80053; 82550; 82553; 84484; 85025; 85379; 93005; 99284; Q9967; U0002

== ENCOUNTER 2023-03-14 18:10 | Emergency (ER) | payer MEDICARE, OTHER ==
[~2023-03-14] VITALS: Ht 157.5 cm; Wt 106.1 kg
[~2023-03-14 18:10] MED LIST changes: +DOXYCYCLINE HY100 MG PO; +IPRAT-ALBUT 0.5-3 ML INH
[2023-03-14 18:42] LABS: BASOPHILS # (AUTO) 0.1 (0.0-0.1); BASOPHILS % 0.6 % (0.0-1.0); EOSINOPHILS # (AUTO) 0.2 (0.0-0.4); EOSINOPHILS % 1.6 % (0.0-6.0); HEMATOCRIT 39.5 % (34.2-44.1); HEMOGLOBIN 13.6 g/dL (12.0-16.0); LYMPHOCYTES # (AUTO) 1.8 (1.0-3.2); LYMPHOCYTES % 19.1 % (18.0-39.1); MEAN CORPUSCULAR HEMOGLOBIN 32.1 pg (28-32); MEAN CORPUSCULAR HGB CONC 34.4 g/dL (31-35); MEAN CORPUSCULAR VOLUME 93.2 fL (81-99); MONOCYTES # (AUTO) 0.5 (0.2-0.8); MONOCYTES % 5.4 % (4.4-11.3); NEUTROPHILS # (AUTO) 6.8 (2.1-6.9); PLATELET COUNT 265 x10e3/uL (140-360); RED BLOOD COUNT 4.24 x10e6/uL (3.6-5.1); RED CELL DISTRIBUTION WIDTH 13.4 % (11.7-14.4); WHITE BLOOD COUNT 9.34 x10e3/uL (4.8-10.8)
[2023-03-14 18:58] LABS: ALANINE AMINOTRANSFERASE 24 IU/L (0-55); ALBUMIN 3.7 g/dL (3.5-5.0); ALKALINE PHOSPHATASE 79 IU/L (40-150); BLOOD UREA NITROGEN 6 mg/dL (7-26); BUN/CREATININE RATIO 8 (6-25); CALCIUM 9.2 mg/dL (8.4-10.2); CARBON DIOXIDE 23 mmol/L (22-29); CHLORIDE 103 mmol/L (98-107); CREATINE KINASE 148 IU/L (29-168); GLUCOSE 101 mg/dL (74-118); SODIUM 138 mmol/L (136-145)
[2023-03-14] MEDS ORDERED: METHYLPREDNISOLONE SOD SUCC 125 MG/2ML VIAL IV STA (19:37)
[2023-03-14] MEDS ORDERED: ALBUTEROL/IPRATROPIUM 3 ML NEB NEB STA ×2 (19:37→20:16)
[2023-03-14] MEDS ORDERED: METHYLPREDNISOLONE SOD SUCC 125 MG/2ML VIAL ONE (19:42)
[2023-03-14 20:05] VITALS: PULSE 89; RESP 22; O2SAT 98
[2023-03-14 20:40] VITALS: PULSE 85; RESP 22; O2SAT 98
[2023-03-14 20:58] VITALS: BP 134/58; PULSE 76; RESP 18; TEMP 98.9; O2SAT 98
[2023-03-14] MEDS ORDERED: VENTOLIN HFA18 GM INH (21:23)
[2023-03-14] MEDS ORDERED: AZITHROMYCIN250 MG PO (21:23)
[2023-03-14] MEDS ORDERED: PREDNISONE20 MG PO (21:23)
[2023-03-14] MEDS ORDERED: ALBUTEROL2.5 MG/3 M INH (21:33)
== END 2023-03-14 21:39 | disposition home or self-care (01) ==
LOC: ER 18:17
DX: R50.9 Fever, unspecified (principal); J40 Bronchitis, not specified as acute or chronic; R05.9 Cough, unspecified; J44.9 Chronic obstructive pulmonary disease, unspecified; I50.9 Heart failure, unspecified; E78.5 Hyperlipidemia, unspecified; Z20.822 Contact with and (suspected) exposure to COVID-19
CPT/HCPCS: 36415; 71045; 80053; 82550; 83690; 83880; 84484; 85025; 87400; 94640 ×2; 94799; 99284; J2930; U0002; 93005